=== PATIENT | female | born 1940 | race Caucasian/White ===

== ENCOUNTER 2019-11-07 16:14 | Inpatient (IN) ==
[2019-11-07] MEDS ORDERED: ACETAMINOPHEN 500 MG TABLET PO STA (17:28)
[2019-11-07] MEDS ORDERED: SODIUM CHLORIDE 0.9% 500 ML IV STA (17:28)
[2019-11-07] MEDS ORDERED: KETOROLAC 30 MG/1 ML VIAL IM STA (17:28)
[2019-11-07] MEDS ORDERED: ONDANSETRON 4 MG/2 ML VIAL IV STA (17:28)
[2019-11-07 17:43] LABS: Basophils % 0.1 % (0.0-0.8); Eosinophils # 0.1 10*3/uL (0.0-0.87); Eosinophils % 0.4 % (0.00-10.9); Hematocrit 38.5 VOL% (35.7-47.0); Hemoglobin 12.4 GM/DL (12.0-16.0); Immature Granulocytes % 0.6 %; Immature Granulocytes Absolute 0.08 #; Lymphocytes # 1.3 10*3/uL (1.4-4.0); Lymphocytes % 9.6 % (21.3-54.2); Mean Corpuscular HGB Conc 32.2 GM/DL (32-36); Mean Corpuscular Volume 89.5 FL (87-102); Mean Platelet Volume 11.2 FL (9.6-12.0); Monocytes % 5.7 % (1.7-12.7); Neutrophils % 83.6 % (38.7-73.9); Platelet Count 237 T/CUMM (130-400); Red Cell Distribution Width 14.3 % (9.3-17.3); White Blood Count 13.4 T/CUMM (4-12)
[2019-11-07 17:59] LABS: INR 1.9; PT Patient Result 19.9 SECS (9.8-11.9); Partial Thromboplastin Time 35.9 SECS (23.9-33.8)
[2019-11-07 18:07] LABS: Albumin 3.4 G/DL (3.4-5.0); Bilirubin,Total 0.7 MG/DL (0.2-1.0); Calcium 8.9 MG/DL (8.5-10.1); Osmolality,Calculated 265.5 MOS/KG (273-304); Total Protein 6.9 G/DL (6.4-8.3); Troponin I 0.665 NG/ML (0.00-0.045)
[2019-11-07] MEDS ORDERED: DOCUSATE SODIUM 100 MG CAPSULE PO PRN (22:22)
[2019-11-07] MEDS ORDERED: KETOROLAC 10 MG TABLET PO PRN (22:22)
[2019-11-07] MEDS ORDERED: ONDANSETRON 4 MG/2 ML VIAL IV PRN (22:22)
[2019-11-07] MEDS ORDERED: NITROGLYCERIN SL 0.4 MG TABLET SL PRN (23:04)
[2019-11-07] MEDS ORDERED: MAGNESIUM SULF RIDER 2 GM in PREMIX 1 EACH IV PRN (23:09)
[2019-11-08 01:03] LABS: Basophils % 0.2 % (0.0-0.8); Eosinophils # 0.1 10*3/uL (0.0-0.87); Hemoglobin 10.6 GM/DL (12.0-16.0); Immature Granulocytes % 0.2 %; Immature Granulocytes Absolute 0.02 #; Mean Corpuscular HGB Conc 33.1 GM/DL (32-36); Mean Corpuscular Volume 89.4 FL (87-102); Neutrophils % 65.6 % (38.7-73.9); Platelet Count 185 T/CUMM (130-400); Red Blood Count 3.58 MC/CUMM (3.8-5.5); Red Cell Distribution Width 14.3 % (9.3-17.3); White Blood Count 8.2 T/CUMM (4-12)
[2019-11-08] MEDS: SODIUM CHLORIDE 0.9% 1,000 ML IV SCH ×2 (01:30→18:46)
[2019-11-08 02:02] LABS: Osmolality,Calculated 270.4 MOS/KG (273-304)
[2019-11-08] MEDS: MAGNESIUM SULF RIDER 4 GM in PREMIX 1 EACH IV PRN (02:16)
[2019-11-08] MEDS: ACETAMINOPHEN 325 MG TABLET PO PRN (17:07)
[2019-11-09] MEDS: SODIUM CHLORIDE 0.9% 1,000 ML IV SCH ×4 (03:08→17:08)
[2019-11-09] MEDS ORDERED: POTASSIUM CHLORIDE 20 MEQ TABLET PO ONE (08:26)
[2019-11-09] MEDS ORDERED: VALSARTAN 80 MG TABLET PO SCH (09:00)
[2019-11-09 09:17] LABS: INR 1.7; PT Patient Result 18.2 SECS (9.8-11.9)
[2019-11-09] MEDS: ASCORBIC ACID 500 MG TABLET PO SCH (10:35)
[2019-11-09] MEDS: ASPIRIN EC 81 MG TABLET PO SCH (10:35)
[2019-11-09] MEDS: METOPROLOL SUCCINATE XL 50 MG TABLET PO SCH ×2 (10:36→21:45)
[2019-11-09] MEDS: DIGOXIN 0.125 MG TABLET PO SCH (10:36)
[2019-11-09] MEDS: MAGNESIUM SULF RIDER 4 GM in PREMIX 1 EACH IV PRN (10:40)
[2019-11-10 05:51] LABS: Basophils % 0.5 % (0.0-0.8); Eosinophils # 0.1 10*3/uL (0.0-0.87); Eosinophils % 1.8 % (0.00-10.9); Hematocrit 30.8 VOL% (35.7-47.0); Immature Granulocytes % 0.3 %; Immature Granulocytes Absolute 0.02 #; Lymphocytes # 2.1 10*3/uL (1.4-4.0); Lymphocytes % 32.1 % (21.3-54.2); Mean Corpuscular HGB Conc 32.5 GM/DL (32-36); Mean Corpuscular Volume 89.3 FL (87-102); Mean Platelet Volume 10.9 FL (9.6-12.0); Monocytes % 8.7 % (1.7-12.7); Neutrophils % 56.6 % (38.7-73.9); Platelet Count 206 T/CUMM (130-400); Red Blood Count 3.45 MC/CUMM (3.8-5.5); Red Cell Distribution Width 14.6 % (9.3-17.3); White Blood Count 6.6 T/CUMM (4-12)
[2019-11-10 06:19] LABS: Calcium 8.2 MG/DL (8.5-10.1); Osmolality,Calculated 266.2 MOS/KG (273-304)
[2019-11-10] MEDS: SODIUM CHLORIDE 0.9% 1,000 ML IV SCH ×2 (06:51→20:59)
[2019-11-10 07:57] LABS: INR 1.2; PT Patient Result 13.1 SECS (9.8-11.9)
[2019-11-10] MEDS: ASPIRIN EC 81 MG TABLET PO SCH (08:52)
[2019-11-10] MEDS: ASCORBIC ACID 500 MG TABLET PO SCH (08:53)
[2019-11-10] MEDS: METOPROLOL SUCCINATE XL 50 MG TABLET PO SCH ×2 (08:53→20:55)
[2019-11-10] MEDS: LOSARTAN 50 MG TABLET PO SCH ×2 (09:57→20:55)
[2019-11-10] MEDS ORDERED: allopurinoL 100 MG TABLET PO PRN (17:53)
[2019-11-10] MEDS ORDERED: COLCHICINE 0.6 MG CAPSULE PO PRN (17:53)
[2019-11-10] MEDS: MAGNESIUM CHLORIDE 64 MG TABLET PO SCH (20:55)
[2019-11-11 07:00] LABS: Basophils % 0.5 % (0.0-0.8); Eosinophils # 0.2 10*3/uL (0.0-0.87); Eosinophils % 2.6 % (0.00-10.9); Hematocrit 32.4 VOL% (35.7-47.0); Hemoglobin 10.4 GM/DL (12.0-16.0); Immature Granulocytes % 0.5 %; Immature Granulocytes Absolute 0.03 #; Lymphocytes # 2.3 10*3/uL (1.4-4.0); Lymphocytes % 34.5 % (21.3-54.2); Mean Corpuscular HGB Conc 32.1 GM/DL (32-36); Mean Corpuscular Volume 91.5 FL (87-102); Mean Platelet Volume 10.9 FL (9.6-12.0); Monocytes % 7.6 % (1.7-12.7); Neutrophils % 54.3 % (38.7-73.9); Platelet Count 241 T/CUMM (130-400); Red Blood Count 3.54 MC/CUMM (3.8-5.5); Red Cell Distribution Width 14.3 % (9.3-17.3); White Blood Count 6.6 T/CUMM (4-12)
[2019-11-11 07:14] LABS: Calcium 8.6 MG/DL (8.5-10.1); Osmolality,Calculated 262.5 MOS/KG (273-304)
[2019-11-11] MEDS: ASPIRIN EC 81 MG TABLET PO SCH (09:55)
[2019-11-11] MEDS: ASCORBIC ACID 500 MG TABLET PO SCH (09:55)
[2019-11-11] MEDS: CHOLECALCIFEROL 5,000 UNIT TABLET PO SCH (09:55)
[2019-11-11] MEDS: LOSARTAN 50 MG TABLET PO SCH ×2 (09:55→21:11)
[2019-11-11] MEDS: METOPROLOL SUCCINATE XL 50 MG TABLET PO SCH ×2 (09:55→21:11)
[2019-11-11] MEDS: DIGOXIN 0.125 MG TABLET PO SCH (09:55)
[2019-11-11] MEDS: MAGNESIUM CHLORIDE 64 MG TABLET PO SCH ×2 (09:55→21:11)
[2019-11-12] MEDS: ACETAMINOPHEN 325 MG TABLET PO PRN (02:25)
[2019-11-12] MEDS: CHOLECALCIFEROL 5,000 UNIT TABLET PO SCH (09:59)
[2019-11-12] MEDS: ASPIRIN EC 81 MG TABLET PO SCH (09:59)
[2019-11-12] MEDS: ASCORBIC ACID 500 MG TABLET PO SCH (09:59)
[2019-11-12] MEDS: LOSARTAN 50 MG TABLET PO SCH ×2 (09:59→22:23)
[2019-11-12] MEDS: MAGNESIUM CHLORIDE 64 MG TABLET PO SCH ×2 (09:59→22:23)
[2019-11-12] MEDS: METOPROLOL SUCCINATE XL 50 MG TABLET PO SCH ×2 (09:59→22:24)
[2019-11-12] MEDS: SODIUM CHLORIDE 0.9% 1,000 ML IV SCH ×2 (18:47→18:48)
[2019-11-13] MEDS: ACETAMINOPHEN 325 MG TABLET PO PRN (00:42)
[2019-11-13] MEDS: SODIUM CHLORIDE 0.9% 1,000 ML IV SCH ×2 (00:42→16:43)
[2019-11-13] MEDS: traMADol 50 MG TABLET PO PRN ×2 (02:24→18:05)
[2019-11-13 06:28] LABS: Basophils % 0.5 % (0.0-0.8); Eosinophils # 0.2 10*3/uL (0.0-0.87); Eosinophils % 3.2 % (0.00-10.9); Hematocrit 30.8 VOL% (35.7-47.0); Hemoglobin 10.1 GM/DL (12.0-16.0); Immature Granulocytes % 0.3 %; Immature Granulocytes Absolute 0.02 #; Lymphocytes # 2.4 10*3/uL (1.4-4.0); Lymphocytes % 36.6 % (21.3-54.2); Mean Corpuscular HGB Conc 32.8 GM/DL (32-36); Mean Corpuscular Volume 88.3 FL (87-102); Mean Platelet Volume 10.5 FL (9.6-12.0); Monocytes % 10.3 % (1.7-12.7); Neutrophils % 49.1 % (38.7-73.9); Platelet Count 261 T/CUMM (130-400); Red Blood Count 3.49 MC/CUMM (3.8-5.5); Red Cell Distribution Width 14.1 % (9.3-17.3); White Blood Count 6.5 T/CUMM (4-12)
[2019-11-13 06:56] LABS: Calcium 8.4 MG/DL (8.5-10.1); Osmolality,Calculated 259.8 MOS/KG (273-304)
[2019-11-13] MEDS: METOPROLOL SUCCINATE XL 50 MG TABLET PO SCH ×2 (09:44→21:03)
[2019-11-13] MEDS: MAGNESIUM CHLORIDE 64 MG TABLET PO SCH ×2 (09:44→21:02)
[2019-11-13] MEDS: CHOLECALCIFEROL 5,000 UNIT TABLET PO SCH (09:44)
[2019-11-13] MEDS: DIGOXIN 0.125 MG TABLET PO SCH (09:45)
[2019-11-13] MEDS: ASPIRIN EC 81 MG TABLET PO SCH (09:45)
[2019-11-13] MEDS: ASCORBIC ACID 500 MG TABLET PO SCH (09:45)
[2019-11-13] MEDS: LOSARTAN 50 MG TABLET PO SCH ×2 (09:45→21:03)
[2019-11-13] MEDS: MAGNESIUM SULF RIDER 4 GM in PREMIX 1 EACH IV PRN (16:42)
[2019-11-14 06:48] LABS: Basophils % 0.7 % (0.0-0.8); Eosinophils # 0.2 10*3/uL (0.0-0.87); Eosinophils % 3.8 % (0.00-10.9); Hematocrit 31.6 VOL% (35.7-47.0); Hemoglobin 9.9 GM/DL (12.0-16.0); Immature Granulocytes % 0.3 %; Immature Granulocytes Absolute 0.02 #; Lymphocytes # 2.2 10*3/uL (1.4-4.0); Lymphocytes % 38.4 % (21.3-54.2); Mean Corpuscular HGB Conc 31.3 GM/DL (32-36); Mean Corpuscular Volume 91.9 FL (87-102); Mean Platelet Volume 10.4 FL (9.6-12.0); Monocytes % 9.5 % (1.7-12.7); Neutrophils % 47.3 % (38.7-73.9); Platelet Count 291 T/CUMM (130-400); Red Blood Count 3.44 MC/CUMM (3.8-5.5); Red Cell Distribution Width 14.2 % (9.3-17.3); White Blood Count 5.8 T/CUMM (4-12)
[2019-11-14 07:12] LABS: Calcium 8.5 MG/DL (8.5-10.1); Osmolality,Calculated 261.7 MOS/KG (273-304)
[2019-11-14] MEDS: SODIUM CHLORIDE 0.9% 1,000 ML IV SCH ×2 (09:21→18:48)
[2019-11-14] MEDS: LOSARTAN 50 MG TABLET PO SCH ×2 (09:22→20:25)
[2019-11-14] MEDS: MAGNESIUM CHLORIDE 64 MG TABLET PO SCH ×2 (09:22→20:25)
[2019-11-14] MEDS: ASCORBIC ACID 500 MG TABLET PO SCH (09:22)
[2019-11-14] MEDS: ASPIRIN EC 81 MG TABLET PO SCH (09:22)
[2019-11-14] MEDS: METOPROLOL SUCCINATE XL 50 MG TABLET PO SCH ×2 (09:22→20:25)
[2019-11-14] MEDS: CHOLECALCIFEROL 5,000 UNIT TABLET PO SCH (09:22)
[2019-11-14] MEDS: ACETAMINOPHEN 325 MG TABLET PO PRN (22:25)
[2019-11-15] MEDS: SODIUM CHLORIDE 0.9% 1,000 ML IV SCH (05:57)
[2019-11-15 06:09] LABS: Basophils % 0.7 % (0.0-0.8); Eosinophils # 0.2 10*3/uL (0.0-0.87); Eosinophils % 3.3 % (0.00-10.9); Hematocrit 31.3 VOL% (35.7-47.0); Hemoglobin 10.2 GM/DL (12.0-16.0); Immature Granulocytes % 0.5 %; Immature Granulocytes Absolute 0.03 #; Lymphocytes # 1.9 10*3/uL (1.4-4.0); Lymphocytes % 31.7 % (21.3-54.2); Mean Corpuscular HGB Conc 32.6 GM/DL (32-36); Mean Corpuscular Volume 89.9 FL (87-102); Mean Platelet Volume 10.8 FL (9.6-12.0); Monocytes % 9.9 % (1.7-12.7); Neutrophils % 53.9 % (38.7-73.9); Platelet Count 316 T/CUMM (130-400); Red Blood Count 3.48 MC/CUMM (3.8-5.5); Red Cell Distribution Width 14.5 % (9.3-17.3); White Blood Count 5.8 T/CUMM (4-12)
[2019-11-15 06:53] LABS: Calcium 8.7 MG/DL (8.5-10.1); Osmolality,Calculated 262.5 MOS/KG (273-304)
[2019-11-15 07:57] VITALS: BP 149/76
[2019-11-15] MEDS ORDERED: ASPIRIN 325 MG TABLET PO SCH (09:00)
[2019-11-15] MEDS: ASCORBIC ACID 500 MG TABLET PO SCH (09:22)
[2019-11-15] MEDS: traMADol 50 MG TABLET PO PRN (09:22)
[2019-11-15] MEDS: MAGNESIUM CHLORIDE 64 MG TABLET PO SCH (09:22)
[2019-11-15] MEDS: METOPROLOL SUCCINATE XL 50 MG TABLET PO SCH (09:23)
[2019-11-15] MEDS: LOSARTAN 50 MG TABLET PO SCH (09:23)
[2019-11-15] MEDS: CHOLECALCIFEROL 5,000 UNIT TABLET PO SCH (09:23)
== END 2019-11-15 12:00 | DRG 563 ==
LOC: N.EDINP 16:14 → N.ED 16:14 → SUATTDRO 20:06 → N.TELEN 21:15 → SUATTDRO 11-09 15:11
PROVIDERS: ADMIT Internal Medicine; ATTEND Family Medicine

== ENCOUNTER 2019-11-18 11:00 | Inpatient (IN) ==
[2019-11-18] MEDS ORDERED: VANCOMYCIN 500 MG VIAL ONE (11:35)
[2019-11-18] MEDS ORDERED: HEPARIN 5,000 UNIT/1 ML VIAL ONE (11:35)
[2019-11-18] MEDS ORDERED: SODIUM CHLORIDE 0.9% 100 ML IV ONE (11:37)
[2019-11-18] MEDS ORDERED: ceFAZolin 1,000 MG VIAL ONE (11:37)
[2019-11-18] MEDS ORDERED: DEXMEDETOMIDINE 200 MCG/2 ML VIAL ONE (11:53)
[2019-11-18] MEDS ORDERED: SUGAMMADEX 200 MG/2 ML VIAL IV ONE (11:53)
[2019-11-18 11:54] LABS: Basophils % 0.3 % (0.0-0.8); Eosinophils # 0.1 10*3/uL (0.0-0.87); Eosinophils % 1.7 % (0.00-10.9); Hematocrit 28.9 VOL% (35.7-47.0); Hemoglobin 9.4 GM/DL (12.0-16.0); Immature Granulocytes % 0.4 %; Immature Granulocytes Absolute 0.03 #; Lymphocytes # 1.5 10*3/uL (1.4-4.0); Mean Corpuscular HGB Conc 32.5 GM/DL (32-36); Mean Corpuscular Volume 89.8 FL (87-102); Mean Platelet Volume 10.1 FL (9.6-12.0); Neutrophils % 66.6 % (38.7-73.9); Platelet Count 278 T/CUMM (130-400); Red Blood Count 3.22 MC/CUMM (3.8-5.5); Red Cell Distribution Width 13.8 % (9.3-17.3)
[2019-11-18] MEDS ORDERED: ceFAZolin 1,000 MG in SYRINGE 1 EACH IV ONE (11:55)
[2019-11-18 12:06] LABS: PT Patient Result 11.1 SECS (9.8-11.9); Partial Thromboplastin Time 35.3 SECS (23.9-33.8)
[2019-11-18 12:09] LABS: Osmolality,Calculated 249.9 MOS/KG (273-304)
[2019-11-18] MEDS ORDERED: TISSUE ADHESIVE 1 EACH APPLICATOR TOP ONE (12:44)
[2019-11-18] MEDS ORDERED: HYDROmorphone 2 MG/1 ML VIAL IV PRN (12:52)
[2019-11-18] MEDS ORDERED: ONDANSETRON 4 MG/2 ML VIAL IV PRN (12:52)
[2019-11-18] MEDS ORDERED: COLCHICINE 0.6 MG CAPSULE PO PRN (12:56)
[2019-11-18] MEDS ORDERED: allopurinoL 100 MG TABLET PO PRN (12:56)
[2019-11-18] MEDS ORDERED: DOCUSATE SODIUM 100 MG CAPSULE PO PRN (12:56)
[2019-11-18] MEDS ORDERED: ACETAMINOPHEN 325 MG TABLET PO PRN (12:56)
[2019-11-18] MEDS ORDERED: LACTATED RINGERS 1,000 ML IV SCH (13:00)
[2019-11-18] MEDS ORDERED: DESFLURANE 1 UNIT/15 MINUTE INH ONE (13:17)
[2019-11-18] MEDS ORDERED: LIDOCAINE 2% 5 ML VIAL ONE (13:17)
[2019-11-18] MEDS ORDERED: propofoL 200 MG/20 ML VIAL IV ONE (13:17)
[2019-11-18] MEDS ORDERED: SUCCINYLCHOLINE 200 MG/10 ML VIAL ONE (13:18)
[2019-11-18] MEDS ORDERED: ROCURONIUM 100 MG/10 ML VIAL IV ONE (13:18)
[2019-11-18] MEDS ORDERED: LACTATED RINGERS 1,000 ML IV ONE (13:18)
[2019-11-18] MEDS ORDERED: ETOMIDATE 40 MG/20 ML VIAL IV ONE (13:18)
[2019-11-18] MEDS ORDERED: PHENYLEPHRINE 1 MG/10 ML SYRINGE IV ONE (13:18)
[2019-11-18] MEDS: MAGNESIUM CHLORIDE 64 MG TABLET PO SCH (22:11)
[2019-11-18] MEDS: ESTRADIOL 1 MG TABLET PO SCH (22:11)
[2019-11-18] MEDS: METOPROLOL SUCCINATE XL 50 MG TABLET PO SCH (22:12)
[2019-11-18] MEDS: LOSARTAN 50 MG TABLET PO SCH (22:19)
[2019-11-18] MEDS: GLUCOSAMINE D3 BOSWELLIA SERR PO SCH (22:19)
[2019-11-19 07:14] LABS: Osmolality,Calculated 257.9 MOS/KG (273-304)
[2019-11-19] MEDS ORDERED: CLOPIDOGREL 75 MG TABLET PO SCH (09:00)
[2019-11-19] MEDS: MULTIVITAMIN (CENTRUM) TABLET PO SCH (09:46)
[2019-11-19] MEDS: METOPROLOL SUCCINATE XL 50 MG TABLET PO SCH ×2 (09:46→21:49)
[2019-11-19] MEDS: FUROSEMIDE 40 MG TABLET PO SCH (09:46)
[2019-11-19] MEDS: CHOLECALCIFEROL 5,000 UNIT TABLET PO SCH (09:46)
[2019-11-19] MEDS: LOSARTAN 50 MG TABLET PO SCH ×2 (09:46→21:49)
[2019-11-19] MEDS: PANTOPRAZOLE 40 MG TABLET PO SCH (09:46)
[2019-11-19] MEDS: ASPIRIN 325 MG TABLET PO SCH (09:46)
[2019-11-19] MEDS: MAGNESIUM CHLORIDE 64 MG TABLET PO SCH ×2 (09:46→21:49)
[2019-11-19] MEDS: NITROFURANTOIN MACROCRYSTALS 100 MG CAPSULE PO SCH (09:46)
[2019-11-19] MEDS: ASCORBIC ACID 500 MG TABLET PO SCH (09:46)
[2019-11-19] MEDS: GLUCOSAMINE D3 BOSWELLIA SERR PO SCH ×2 (10:54→22:09)
[2019-11-19] MEDS: CALCIUM PHOSPHATE VITAMIN D3 PO SCH (10:54)
[2019-11-19] MEDS: ENOXAPARIN 40 MG/0.4 ML SYRINGE SUBCUT SCH (11:16)
[2019-11-19] MEDS ORDERED: traMADol 50 MG TABLET PO PRN (13:51)
[2019-11-19] MEDS: ESTRADIOL 1 MG TABLET PO SCH (21:49)
[2019-11-19] MEDS: APIXABAN 2.5 MG TABLET PO SCH (21:52)
[2019-11-20] MEDS: ENOXAPARIN 40 MG/0.4 ML SYRINGE SUBCUT SCH (06:12)
[2019-11-20] MEDS: APIXABAN 2.5 MG TABLET PO SCH (09:35)
[2019-11-20] MEDS: ASPIRIN 325 MG TABLET PO SCH (09:35)
[2019-11-20] MEDS: MULTIVITAMIN (CENTRUM) TABLET PO SCH (09:36)
[2019-11-20] MEDS: FUROSEMIDE 40 MG TABLET PO SCH (09:36)
[2019-11-20] MEDS: MAGNESIUM CHLORIDE 64 MG TABLET PO SCH (09:36)
[2019-11-20] MEDS: NITROFURANTOIN MACROCRYSTALS 100 MG CAPSULE PO SCH (09:36)
[2019-11-20] MEDS: PANTOPRAZOLE 40 MG TABLET PO SCH (09:36)
[2019-11-20] MEDS: CHOLECALCIFEROL 5,000 UNIT TABLET PO SCH (09:36)
[2019-11-20] MEDS: ASCORBIC ACID 500 MG TABLET PO SCH (09:36)
[2019-11-20] MEDS: CALCIUM PHOSPHATE VITAMIN D3 PO SCH (09:37)
[2019-11-20] MEDS: LOSARTAN 50 MG TABLET PO SCH (09:37)
[2019-11-20] MEDS: GLUCOSAMINE D3 BOSWELLIA SERR PO SCH (09:37)
[2019-11-20] MEDS: METOPROLOL SUCCINATE XL 50 MG TABLET PO SCH (09:37)
[2019-11-20 12:05] VITALS: BP 139/58
[2019-11-20] MEDS ORDERED: DIGOXIN 0.125 MG TABLET PO SCH (13:00)
== END 2019-11-20 15:23 | DRG 253 ==
LOC: EDBD → EDUNIT# → N.EDINP 11:00 → N.ED 11:00 → N.3E 11:55
PROVIDERS: ADMIT Surgery; ATTEND Surgery